=== PATIENT | female | born 1980 | race Caucasian/White ===

== ENCOUNTER → 2016-08-14 | Outpatient (CLI) | payer OTHER ==
[~2016-08-14] VITALS: Ht 149.9 cm; Wt 44.5 kg
[~2016-08-14] MED LIST: /HALO5TAB OR; ACYC1CAP8 PO; ALBU17IN INH; ALLE25CA OR; ATARAX OR; ATIV1TAB10 PO; CELE10TA OR; CITA10TA2 PO; DRIS50002 PO; FOLI1TAB86 PO; HYDR-3363 PO; HYDR7.5T38 PO; IMIT100T PO; IMIT4KIT2 SC; IMIT5SPR; LORA2TAB OR; MIRA3350 PO; MULT1TAB10 PO; NICO21DI4 TD; NS 1,000 ML IV ONE; No Historical Meds; PERCOCET PO; PROPOFOL 500 MG/50 ML VIAL As Ordered ONE; Proventil HFA INH; SERO50TA PO; SING10TA32 PO; SYNT25TA PO; TOPA25TA10 PO; TOPA50TA PO; TOPI100T OR; TRAZ50TA OR; TRAZ50TA2 PO; Topamax; VITA100T2 PO; VITMTA GT; ZYPR5TAB OR
--- NOTE | 2016-08-14 15:59 | ROOR ---
Patient Name: Uzma Trotter Procedure Date: 08/14/2016 3:35 PM Date of : 1980 Age: 35 Room: [facility] Gender: Female Note Status: Finalized Procedure: Colonoscopy Indications: Pelvic pain, Irritable bowel syndrome with constipation, Mixed irritable bowel syndrome, Change in bowel habits Providers: Royal DUMONT MD Referring MD: MEENU SIBLEY MD Requesting Provider: Medicines: Monitored Anesthesia Care Complications: No immediate complications. Procedure: Pre-Anesthesia Assessment: - The heart rate, respiratory rate, oxygen saturations, blood pressure, adequacy of pulmonary ventilation, and response to care were monitored throughout the procedure. The Colonoscope was introduced through the anus and advanced to 5 cm into the ileum. The colonoscopy was performed without difficulty. The patient tolerated the procedure well. The quality of the bowel preparation was good. Findings: The perianal and digital rectal examinations were normal. The colon (entire examined portion) appeared normal. The terminal ileum appeared normal. Impression: - The entire colon is normal. - The examined portion of the ileum was normal. - No specimens collected. - (Irritable Bowel Syndrome/IBS-C suspected.) Recommendation: - Miralax 1 capful (17 grams) in 8 ounces of water PO daily. Royal Dumont MD Royal DUOMNT MD 08/14/2016 3:58:59 PM This report has been signed electronically. Number of Addenda: 0 Note Initiated On: 08/14/2016 3:35 PM Estimated Blood Loss: Estimated blood loss: none.
[2016-08-14 16:38] VITALS: BP 124/88
== END | disposition home or self-care (01) ==
LOC: M OPP 14:18
PROVIDERS: ATTEND Internal Medicine Gastroenterology
DX: K58.2 Mixed irritable bowel syndrome (principal); R10.2 Pelvic and perineal pain; R19.4 Change in bowel habit; D64.9 Anemia, unspecified; R23.3 Spontaneous ecchymoses; F41.9 Anxiety disorder, unspecified; F32.9 Major depressive disorder, single episode, unspecified; G43.909 Migraine, unspecified, not intractable, without status migrainosus; R56.9 Unspecified convulsions; J45.909 Unspecified asthma, uncomplicated; D68.2 Hereditary deficiency of other clotting factors; B00.9 Herpesviral infection, unspecified; F17.210 Nicotine dependence, cigarettes, uncomplicated; Z88.8 Allergy status to other drugs, medicaments and biological substances; Z79.899 Other long term (current) drug therapy

== ENCOUNTER 2017-01-04 10:05 | Inpatient (IN) | payer OTHER ==
[~2017-01-04] VITALS: Ht 149.9 cm; Wt 46.2 kg
[~2017-01-04 10:05] MED LIST changes: -ACYC1CAP8 PO; +ACYC200C8 PO; -NS 1,000 ML IV ONE; -PROPOFOL 500 MG/50 ML VIAL As Ordered ONE; +TOPA1TAB PO; -TOPA25TA10 PO
[2017-01-04 14:15] VITALS: BP 108/82
[2017-01-04] MEDS ORDERED: MOM 30ML SUSPENSION UDC PO PRN (14:30)
[2017-01-04] MEDS ORDERED: ACETAMINOPHEN TAB 650MG DOSE (2X325MG) PO PRN (14:30)
[2017-01-04] MEDS ORDERED: ALBUTEROL 90 MCG/ACT 8GM HFA INHALER INH PRN (14:30)
[2017-01-04] MEDS ORDERED: SUMAtriptan SUCCINATE 6 MG/0.5 ML VIAL SC PRN (14:30)
[2017-01-04] MEDS ORDERED: VENTAER INH (15:57)
[2017-01-04] MEDS ORDERED: ACYC400T PO (15:57)
[2017-01-04] MEDS ORDERED: LOVE1INJ2 SC (15:57)
[2017-01-04] MEDS ORDERED: TYLE325T5 PO (15:57)
[2017-01-04] MEDS ORDERED: MILKSUS PO (15:57)
[2017-01-04] MEDS ORDERED: VITA100066 PO (15:57)
[2017-01-04] MEDS ORDERED: SENN1TAB10 PO (15:57)
[2017-01-04] MEDS ORDERED: OXYC-517 PO (15:57)
[2017-01-04] MEDS ORDERED: VITA500T PO (15:57)
[2017-01-04] MEDS ORDERED: TOPA100T12 PO (15:57)
[2017-01-04] MEDS ORDERED: SUMA4INJ3 SC (15:57)
[2017-01-04] MEDS ORDERED: CALC950T PO (15:57)
[2017-01-04] MEDS ORDERED: GABA-282 PO (15:57)
[2017-01-04] MEDS ORDERED: BACI50OI TOP (15:57)
[2017-01-04] MEDS ORDERED: GABAPENTIN 300 MG CAP PO SCH (16:00)
[2017-01-04] MEDS ORDERED: ACYCLOVIR 200 MG CAPSULE PO SCH ×2 (16:00→21:00)
[2017-01-04] MEDS: oxyCODONE 5MG TAB PO PRN ×2 (16:42→21:48)
[2017-01-04] MEDS: BACITRACIN OINT 30GM TOP SCH ×2 (16:43→21:49)
[2017-01-04] MEDS ORDERED: SENNA 8.6 MG TAB (SENOKOT) PO SCH (21:00)
[2017-01-04] MEDS ORDERED: CALCIUM/VITAMIN D 500 MG TAB PO SCH (21:00)
[2017-01-04] MEDS ORDERED: TOPIRAMATE (TopAMAX) 100 MG TAB PO SCH (21:00)
[2017-01-05] MEDS ORDERED: ASCORBIC ACID 500 MG TAB PO SCH (09:00)
[2017-01-05] MEDS ORDERED: ENOXAPARIN 40 MG/0.4 ML SYRINGE (J1650) SC SCH (09:00)
--- NOTE | 2017-01-05 09:27 | DS.PDOC ---
PM&R Discharge Summary Appliance Technician Discharge Note DATE OF ADMISSION: Jan 04, 2017 at 14:13 DATE OF DISCHARGE: Jan 05, 2017 at 00:05 DISCHARGE DIAGNOSES: 1. Left comminuted tibial plateau fracture. 2. Left ulnar styloid fracture. 3. Nondisplaced left fifth metacarpal spiral fracture. 4. Distal right upper extremity palsy. PAST MEDICAL HISTORY: 1. Bipolar affective disorder versus explosive mood disorder. 2. Migraines. 3. Asthma. 4. History of polysubstance abuse. 5. Prekallikrein Deficiency PAST SURGICAL HISTORY: 1. Hysterectomy. HOSPITAL COURSE: Patient admitted on 01/04/17 for musculoskeletal rehabilitation to learn how to adapt to nonweightbearing status for her left knee left wrist and diminished distal right upper extremity function yet have functional mobility and ADLs to return home. Patient had previously agreed to acute intensive rehabilitation after arriving she wished to try and direct all of her medications and at the time of discharge is reports she was trying to negotiate with medicine service on the amount and what type of opiates to receive. Patient down elected to be discharged AGAINST MEDICAL ADVICE to home. LABORATORY DATA: Please see below. IMAGES: None ALLERGIES: See below. MEDICATIONS: See Below. DISCHARGE DISPOSITION: Patient report as leaving with her father and discharged AGAINST MEDICAL ADVICE last night at 5 minutes after midnight. No reported follow-up or medications outside of those provided by [facility] have been arranged. Vital Signs/I&O Vital Sign - Last 24 Hours 01/04/17 01/04/17 01/04/17 01/04/17 14:15 15:00 16:42 17:15 Temp 99.1 Pulse 72 Resp 18 18 18 B/P (MAP) 108/82 (91) Pulse Ox 100 O2 Delivery Room Air Room Air Room Air Room Air 01/04/17 01/04/17 21:48 22:18 Resp 18 20 Medications Medications Current Medications Acetaminophen (Tylenol Tab) 650 mg Q6HP PRN PO PAIN OR FEVER; Start 01/04/17 at 14:30; Stop 01/05/17 at 00:57; Status DC Acyclovir (Zovirax) 400 mg BID PO Last administered on 01/04/17t 21:49; Start 01/04/17 at 21:00; Stop 01/05/17 at 00:58; Status DC Acyclovir (Zovirax) 400 mg TID PO ; Start 01/04/17 at 16:00; Stop 01/04/17 at 17:42; Status DC Albuterol Sulfate (Proventil, Ventolin Hfa) 2 puff Q4HP PRN INH SHORTNESS OF BREATH; Start 01/04/17 at 14:30; Stop 01/05/17 at 00:58; Status DC Ascorbic Acid (Vitamin C) 500 mg DAILY PO ; Start 01/05/17 at 09:00; Stop at 09:00; Status DC Bacitracin (Bacitracin Oint) to facial and scalp lacerations TID TOP Last administered on 01/04/17 21:49; Start 01/04/17 at 16:00; Stop 01/05/17 at 00 :58; Status DC Calcium/Vitamin D (Oscal D) 500 mg BID PO Last administered on 01/04/17 21:48 ; Start 01/04/17 at 21:00; Stop 01/05/17 at 00:58; Status DC Enoxaparin Sodium (Lovenox) 40 mg DAILY SC ; Start 01/05/17 at 09:00; Stop at 09:00; Status DC Gabapentin (Neurontin) 300 mg TID PO ; Start 01/04/17 at 16:00; Stop 01/04/17 at 17:42; Status DC Home Med (Med Rec Complete!) ASDIRECTED XX ; Start 01/04/17 at 16:00; Stop at 16:03; Status DC Magnesium Hydroxide (Milk Of Magnesia) 30 ml DAILYPRN PRN PO CONSTIPATION; Start 01/04/17 at 14:30; Stop 01/05/17 at 00:57; Status DC Miscellaneous (Unresolved Clarification Entry) SEE LABEL COMMENTS UNRESOLVED XX ; Start 01/04/17 at 00:01; Stop 01/04/17 at 17:44; Status DC Oxycodone HCl (Roxicodone, Oxyir) 5 mg Q4HP PRN PO PAIN SCALE 8-10 Last administered on 01/04/17 21:48; Start 01/04/17 at 14:30; Stop 01/05/17 at 00 :58; Status DC Senna (Senokot) 2 tab QHS PO ; Start 01/04/17 at 21:00; Stop 01/05/17 at 00:57 ; Status DC Sumatriptan Succinate (IMITREX INJection) 4 mg Q2HP PRN SC MIGRAINE; Start at 14:30; Stop 01/05/17 at 00:58; Status DC Topiramate (TopAMAX) 100 mg BID PO Last administered on 01/04/17t 21:49; Start 01/04/17 at 21:00; Stop 01/05/17 at 00:58; Status DC Scheduled Acetaminophen (Tylenol) 325 Mg Tab, 975 MG PO TID, (Reported) STARTED AT [facility] Acyclovir (Acyclovir) 400 Mg Tab, 400 MG PO BID, (Reported) Ascorbic Acid (Vitamin C) 500 Mg Tab, 500 MG PO DAILY, (Reported) STARTED AT [facility] Bacitracin (Bacitracin) 500 Unit/Gm Oin, 1 DOSE TOP TID, (Reported) STARTED AT [facility] - APPLY TO FACIAL SCARS AND SCALP Calcium Citrate (Calcium Citrate) 950 Mg Tab, 475 MG PO BID, (Reported) STARTED AT [facility] Cholecalciferol (Vitamin D) 1,000 Unit Tab, 1,000 UNIT PO DAILY, (Reported) STARTED AT [facility] Enoxaparin Sodium (Lovenox) 30 Mg/0.3 Ml Inj, 30 MG SC BID, (Reported) STARTED AT [facility] Gabapentin (Gabapentin) 300 Mg Cap, 300 MG PO TID, (Reported) STARTED AT [facility] Milk Of Magnesia (Milk of Magnesia) 1,200 Mg/15 Ml Genesis, 30 ML PO QHS, (Reported) STARTED AT [facility] Senna (Senna Lax) 8.6 Mg Tab, 2 TAB PO QHS, (Reported) STARTED AT [facility] Topiramate (Topamax) 100 Mg Tab, 100 MG PO BID, (Reported) Scheduled PRN Albuterol Sulfate (Ventolin Hfa) 108 Mcg/Act Aer, 2 SPRAYS INH Q4H PRN for SHORTNESS OF BREATH, (Reported) Oxycodone HCl (Oxycodone HCl) 5 Mg Tab, 5 MG PO Q4H PRN for PAIN, (Reported) STARTED AT [facility] Oxycodone HCl (Oxycodone HCl) 5 Mg Tab, 10 MG PO Q4H PRN for PAIN, (Reported) STARTED AT [facility] Sumatriptan Succinate (Sumatriptan Succinate) 4 Mg/0.5 Ml Inj, 4 MG SC DAILY PRN for MIGRAINE, (Reported) Allergies Coded Allergies: Aspirin (Verified Allergy, Unknown, hives swelling, 08/10/16) Ibuprofen (Verified Allergy, Unknown, hives swelling, 08/10/16) Valproic Acid (Verified Allergy, Unknown, 06/13/12) ROSEMARIE LAZAR MD Jan 05, 2017 09:27
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
== END 2017-01-05 00:05 | disposition home or self-care (01) | DRG 862 ==
LOC: M PM&R 14:13
PROVIDERS: ADMIT Physical Medicine & Rehabilitation; ATTEND Physical Medicine & Rehabilitation
DX: S82.145D Nondisplaced bicondylar fracture of left tibia, subsequent encounter for closed fracture with routine healing (principal); D68.2 Hereditary deficiency of other clotting factors; S62.307D Unspecified fracture of fifth metacarpal bone, left hand, subsequent encounter for fracture with routine healing; S52.615D Nondisplaced fracture of left ulna styloid process, subsequent encounter for closed fracture with routine healing; G43.909 Migraine, unspecified, not intractable, without status migrainosus; G83.21 Monoplegia of upper limb affecting right dominant side; F34.0 Cyclothymic disorder; F60.3 Borderline personality disorder; F19.180 Other psychoactive substance abuse with psychoactive substance-induced anxiety disorder; J45.909 Unspecified asthma, uncomplicated; Z88.6 Allergy status to analgesic agent; Z88.8 Allergy status to other drugs, medicaments and biological substances; Z90.710 Acquired absence of both cervix and uterus; Z72.0 Tobacco use; Z79.899 Other long term (current) drug therapy; V47.0XXD Car driver injured in collision with fixed or stationary object in nontraffic accident, subsequent encounter; Y92.410 Unspecified street and highway as the place of occurrence of the external cause; Y93.89 Activity, other specified; Y99.9 Unspecified external cause status

== ENCOUNTER → 2017-04-04 | Outpatient (REF) | LOC: M SMT 13:22 | DX: Z02.71 Encounter for disability determination (principal) ==

== ENCOUNTER → 2019-02-04 | Outpatient (REF) | payer OTHER ==
[~2019-02-04] MED LIST changes: -/HALO5TAB OR; +ACYC400T PO; +BACI50OI TOP; +CALC950T PO; -DRIS50002 PO; +DRIS50003 PO; +GABA-843 PO; +HALO1TAB21 OR; +LOVE1INJ2 SC; +MILK120011 PO; +OXYC-517 PO; +SENN1TAB10 PO; +SUMA4INJ3 SC; +TOPA100T12 PO; +TYLE325T5 PO; +VENTAER INH; +VITA100066 PO; +VITA500T PO
[2019-02-04 15:28] LABS: FREE T4 0.62 NG/DL (0.76-1.46); RHEUMATOID FACTOR QUANT < 10.0 IU/ML (<15.0); VITAMIN B12 LEVEL 338 PG/ML
[2019-02-05 12:36] LABS: ALBUMIN % 61.4 % (55.8-66.1); ALPHA-1-GLOBULIN % 3.8 % (2.9-4.9); ALPHA-1-GLOBULINS 0.27 GM/DL (0.17-0.41); ALPHA-2-GLOBULINS 0.73 GM/DL (0.42-0.99); ALPHA-2-GLOBULINS % 10.4 % (7.1-11.8); BETA-1-GLOBULINS 0.39 GM/DL (0.28-0.60); BETA-1-GLOBULINS % 5.5 % (4.7-7.2); BETA-2-GLOBULINS 0.33 GM/DL (0.19-0.55); BETA-2-GLOBULINS % 4.7 % (3.2-6.5); GAMMA GLOBULIN % 14.2 % (11.1-18.8); GAMMA GLOBULINS 0.99 GM/DL (0.65-1.58)
[2019-02-05 14:07] LABS: ANTINUCLEAR ANTIBODIES DIRECT Negative (Negative)
[2019-02-11 09:50] LABS: DRVV SCREEN 41.2 SEC
== END ==
LOC: M LABNEURO 12:11
PROVIDERS: ATTEND Psychiatry & Neurology Neurology
DX: R51 Headache (principal); G62.9 Polyneuropathy, unspecified

== ENCOUNTER → 2023-06-22 | Outpatient (CLI) | payer OTHER ==
[~2023-06-22] MED LIST changes: +ACYC1TAB PO; -ACYC400T PO; +GABA-282 PO; -GABA-843 PO; +MONT-5 PO; -SING10TA32 PO; -SUMA4INJ3 SC; +SUMA4INJ6 SC; +VITA-243 PO; -VITA500T PO
== END ==
LOC: M SOG 13:32
PROVIDERS: ATTEND Physician Assistant
DX: M17.12 Unilateral primary osteoarthritis, left knee (principal)

== ENCOUNTER 2024-10-01 18:20 | Emergency (ER) | payer OTHER ==
[~2024-10-01] VITALS: Ht 149.9 cm; Wt 44.5 kg
[~2024-10-01 18:20] MED LIST changes: +ACYC-438 PO; -ACYC1TAB PO; +GABA-1172 PO; -GABA-282 PO; -SUMA4INJ6 SC; +SUMA4PEN SC
[2024-10-01 18:56] LABS: PLATELET COUNT, AUTOMATED 258 10^3/uL (150-450)
[2024-10-01] MEDS ORDERED: LEVO75TA4 PO (19:30)
[2024-10-01] MEDS ORDERED: SUMA100T2 PO (19:30)
[2024-10-01] MEDS ORDERED: EPIN0.3I11 INJ (19:30)
[2024-10-01] MEDS ORDERED: SERT50TA29 PO (19:30)
[2024-10-01 19:31] LABS: ETHYL ALCOHOL (ETHANOL) < 0.003 % (0.000-0.010)
[2024-10-01 19:33] LABS: ALT/SGPT 26 U/L (7.0-40); AST/SGOT 31 U/L (<34); CALCIUM LEVEL 9.5 MG/DL (8.5-10.1); CARBON DIOXIDE LEVEL 27 MMOL/L (20-31); CHLORIDE LEVEL 102 MMOL/L (98-107); CREATININE FOR GFR 0.90 MG/DL (0.55-1.30); GLOMERULAR FILTRATION RATE 82.4 (>58); POTASSIUM SERUM 4.4 MMOL/L (3.5-5.1); SALICYLATE LEVEL < 3.0 MG/DL (<30); SODIUM LEVEL 140 MMOL/L (136-145)
[2024-10-01] MEDS ORDERED: ZOLO100T PO (19:33)
[2024-10-01] MEDS: ACETAMINOPHEN 325 MG TAB PO ONE (19:41)
[2024-10-01 20:13] LABS: BARBITURATES URINE NEGATIVE (NEGATIVE); BENZODIAZEPINES URINE NEGATIVE (NEGATIVE); COCAINE METABOLITE URINE NEGATIVE (NEGATIVE); METHADONE URINE NEGATIVE (NEGATIVE); OPIATES URINE NEGATIVE (NEGATIVE); PHENCYCLIDINE URINE NEGATIVE (NEGATIVE)
[2024-10-01 20:14] LABS: AMPHETAMINES LEVEL URINE POSITIVE (NEGATIVE); CANNABINOIDS URINE POSITIVE (NEGATIVE)
[2024-10-01] MEDS: NICOTINE 21 MG/24 HR 1 EA TRANSDERMAL TD ONE (20:30)
[2024-10-01] MEDS: SERTRALINE 100 MG TAB PO SCH (20:48)
[2024-10-01] MEDS: NICOTINE POLACRILEX 2 MG GUM PO ONE (21:18)
[2024-10-01] MEDS ORDERED: ACET-907 PO (21:29)
[2024-10-01] MEDS ORDERED: HOME MED LIST COMPLETE! XX SCH (21:30)
[2024-10-01] MEDS: amLODIPine 5 MG TAB PO ONE (23:15)
[2024-10-02] MEDS: SUMAtriptan SUCCINATE 50MG TABLET PO ONE (01:13)
[2024-10-02] MEDS: LEVOTHYROXINE 75 MCG TABLET (0.075 MG) PO SCH (08:03)
[2024-10-02] MEDS: SERTRALINE HCL 50 MG TAB PO ONE (08:55)
[2024-10-02 09:06] VITALS: BP 162/98; TEMP 97.7; O2SAT 98
== END 2024-10-02 09:42 | disposition home or self-care (01) ==
LOC: M ED 18:20
DX: F31.30 Bipolar disorder, current episode depressed, mild or moderate severity, unspecified (principal); F41.9 Anxiety disorder, unspecified; F43.10 Post-traumatic stress disorder, unspecified; G43.909 Migraine, unspecified, not intractable, without status migrainosus; F17.200 Nicotine dependence, unspecified, uncomplicated; F12.10 Cannabis abuse, uncomplicated; J45.909 Unspecified asthma, uncomplicated; G40.909 Epilepsy, unspecified, not intractable, without status epilepticus; E07.9 Disorder of thyroid, unspecified; Z79.899 Other long term (current) drug therapy; Z88.6 Allergy status to analgesic agent; Z91.030 Bee allergy status